=== PATIENT | male | born 2000 | race Two or more races ===

== ENCOUNTER 2021-06-04 23:25 | Emergency (ER) | payer SELFPAY ==
[~2021-06-04] VITALS: Ht 180.3 cm; Wt 98.4 kg
[2021-06-05 00:06] LABS: Basophils # (auto) 0.1 10 ^3/uL (0-0.2); Basophils % (auto) 0.8 % (0.0-2.0); Eosinophils # (auto) 0 10 ^3/uL (0-0.8); Eosinophils % (auto) 0.4 % (0.0-7.0); Hematocrit 45.3 % (41.0-53.0); Hemoglobin 15.5 g/dL (13.5-17.5); Lymphocytes # (auto) 1.3 10 ^3/uL (0.4-5.4); Lymphocytes % (auto) 11.3 % (10.0-50.0); Mean Corpuscular Hemoglobin 30.1 pg (28.0-32.0); Mean Corpuscular Hgb Conc. 34.3 g/dL (32.0-36.0); Mean Corpuscular Volume 87.7 fL (80.0-100.0); Monocytes # (auto) 0.5 10 ^3/uL (0-1.3); Monocytes % (auto) 4.6 % (0.0-12.0); Neutrophils # (auto) 9.3 10 ^3/uL (1.6-8.6); Neutrophils % (auto) 82.9 % (37.0-80.0); Red Blood Cells 5.16 10^6/uL (4.5-5.90); Red Cell Distribution Width 12.5 % (11.8-14.3); White Blood Cell 11.2 10^3/uL (4.4-10.8)
[2021-06-05 00:28] LABS: Albumin 4.1 g/dL (3.4-5.0); Anion Gap 6 (5-15); Carbon Dioxide 27 mmol/L (21-32); Chloride 106 mmol/L (98-107); Glucose 116 mg/dL (74-106); Potassium 3.9 mmol/L (3.5-5.1); Sodium 139 mmol/L (136-145)
[2021-06-05 00:36] LABS: Alanine Aminotransferase 25 U/L (16-61); Alkaline Phosphatase 104 U/L (45-117); Aspartate Aminotransferase 11 U/L (15-37); BUN/Creatinine Ratio 11.2; Bilirubin, Total 0.5 mg/dL (0.2-1.0); Blood Urea Nitrogen 11 mg/dL (7-18); GFR African American 127 mL/min; GFR Non-African American 105 mL/min; Total Protein 7.9 g/dL (6.4-8.2)
[2021-06-05 01:32] VITALS: BP 144/90
== END 2021-06-05 03:11 | disposition left against medical advice (07) ==
LOC: ER 23:25
DX: F41.9 Anxiety disorder, unspecified (principal); Z53.29 Procedure and treatment not carried out because of patient's decision for other reasons
CPT/HCPCS: 36415; 71045; 80053; 84484; 85025; 93005